=== PATIENT | female | born 1990 | race African-American/Black ===

== ENCOUNTER 2016-12-13 00:19 | Emergency (ER) | payer OTHER ==
[~2016-12-13] VITALS: Ht 149.9 cm; Wt 71.7 kg
[2016-12-13 02:22] LABS: Basophils # (auto) 0 uL; Basophils % (auto) 0.2 % (0.0-2.0); CONDITION Y; Eosinophils # (auto) 0.3 uL; Eosinophils % (auto) 2.7 % (0.0-7.0); Hematocrit 36.8 % (36.0-46.0); Hemoglobin 12.2 g/dL (12.2-16.2); Lymphocytes # (auto) 3.7 uL; Lymphocytes % (auto) 37.6 % (10.0-50.0); Mean Corpuscular Hemoglobin 29.8 pg (28.0-32.0); Mean Platelet Volume 8.5 fL (7.4-10.4); Monocytes # (auto) 0.5 uL; Monocytes % (auto) 5.3 % (0.0-12.0); Neutrophils # (auto) 5.3 uL; Neutrophils % (auto) 54.2 % (37.0-80.0); Platelet Count (auto) 310 10^3/uL (140-450); Red Cell Distribution Width 13.9 % (11.6-16.0); White Blood Cell 9.9 10^3/uL (4.4-10.8)
[2016-12-13 02:41] LABS: Albumin 3.9 g/dL (3.4-5.0); Calcium 8.7 mg/dL (8.5-10.1); Potassium 4.3 mmol/L (3.5-5.1)
[2016-12-13 02:43] LABS: BUN/Creatinine Ratio 9.3
[2016-12-13 02:46] LABS: Bilirubin, Total 0.4 mg/dL (0.2-1.0); Total Protein 7.5 g/dL (6.4-8.2)
[2016-12-13 05:47] LABS: Urine Bilirubin Negative (Negative); Urine Blood Negative /uL (Negative); Urine Color Yellow (Yellow); Urine Glucose Normal (Normal); Urine Ketone Negative (Negative); Urine Mucus FEW (None Seen); Urine Nitrite Negative (Negative); Urine RBC 18 /hpf (0 - 4); Urine Squamous Epithelial Cell FEW /hpf (<5); Urine Urobilinogen Normal (Negative)
[2016-12-13 05:53] LABS: Urine Trichomonas Present (None Seen)
[2016-12-13 07:43] VITALS: BP 111/77
[2016-12-13] MEDS ORDERED: NITROFURANTOIN (MONO) 100 mg CAP PO ONE (08:00)
== END 2016-12-13 08:28 | disposition home or self-care (01) ==
LOC: ER 00:19
DX: N39.0 Urinary tract infection, site not specified (principal)
CPT/HCPCS: 36415; 74176; 80053; 81001; 82150; 83690; 85025

== ENCOUNTER 2016-12-25 11:10 | Emergency (ER) | payer OTHER ==
[~2016-12-25] VITALS: Ht 147.3 cm; Wt 72.1 kg
[2016-12-25 11:35] VITALS: BP 109/63
[2016-12-25] MEDS ORDERED: cefTRIAXone SODIUM 250 MG VL IM ONE (12:00)
== END 2016-12-25 12:13 | disposition home or self-care (01) ==
LOC: ER 11:10
DX: N76.0 Acute vaginitis (principal); N39.0 Urinary tract infection, site not specified
CPT/HCPCS: 96372; 99283; J0696